=== PATIENT | female | born 2000 | race Caucasian/White ===

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

== ENCOUNTER 2023-12-26 13:47 | Emergency (ER) | payer BC ==
[2023-12-26] MEDS: Sodium Chloride 0.9% 1,000 ML IV ONE (14:58)
[2023-12-26] MEDS: Ketorolac 30 MG/ML SDV IVPUSH ONE (14:58)
[2023-12-26 15:10] LABS: BASOPHILS ABSOLUTE AUTO 0.05 K/uL (0.00-0.20); BASOPHILS PERCENT AUTO 0.7 % (0.0-1.0); EOSINOPHILS ABSOLUTE AUTO 0.05 K/uL (0.00-0.45); EOSINOPHILS PERCENT AUTO 0.7 % (0.0-6.0); HEMATOCRIT 44.1 % (37.0-47.0); HEMOGLOBIN 14.9 g/dL (12.0-16.0); IMMATURE GRAN ABSOLUTE AUTO 0.03 K/uL (0.00-0.05); IMMATURE GRAN PERCENT AUTO 0.4 % (0.0-0.4); LYMPHOCYTES ABSOLUTE AUTO 0.87 K/uL (1.00-4.80); LYMPHOCYTES PERCENT AUTO 12.3 % (24.0-44.0); MEAN CORPUSCULAR HEMOGLOBIN 30.6 pg (28.0-32.0); MEAN CORPUSCULAR HGB CONC 33.8 g/dL (32.0-36.0); MEAN CORPUSCULAR VOLUME 90.6 fL (83.0-99.0); MEAN PLATELET VOLUME 9.8 fL (9.4-12.3); MONOCYTES PERCENT AUTO 9.9 % (0.0-8.0); NEUTROPHILS ABSOLUTE AUTO 5.36 K/uL (1.80-7.70); PLATELET COUNT,PLT 293 K/uL (150-400); RED BLOOD CELL COUNT 4.87 M/uL (4.10-5.30); WHITE BLOOD CELL COUNT,WBC 7.06 K/uL (3.9-11.3)
[2023-12-26 15:48] LABS: CORONAVIRUS COVID-19 NAA POSITIVE (NEGATIVE); INFLUENZA A NAA NEGATIVE (NEGATIVE); INFLUENZA B NAA NEGATIVE (NEGATIVE); RESPIRATORY SYNCYTIAL VIR NAA NEGATIVE (NEGATIVE)
[2023-12-26 16:11] LABS: A/G RATIO 1.3 (0.9-1.6); BILIRUBIN TOTAL 0.4 mg/dL (0.2-1.0); CALCIUM 8.9 mg/dL (8.5-10.1); CARBON DIOXIDE,CO2 26.4 mmol/L (21.0-32.0); CREATININE 0.8 mg/dL (0.6-1.0); EST CRCL DRUG DOSING (CG) 104.14 mL/min; POTASSIUM,K 4.2 mmol/L (3.5-5.1); PROTEIN TOTAL,TP 7.1 g/dL (6.4-8.2)
[2023-12-26 16:17] LABS: APPEARANCE,URINE CLEAR; BILIRUBIN,URINE NEGATIVE (NEGATIVE); COLOR,URINE YELLOW; GLUCOSE,URINE NEGATIVE (NEGATIVE); KETONES,URINE NEGATIVE (NEGATIVE); LEUKOCYTE ESTERASE,URINE TRACE (NEGATIVE); NITRITE,URINE NEGATIVE (NEGATIVE); OCCULT BLOOD,URINE NEGATIVE (NEGATIVE); PROTEIN,URINE NEGATIVE (NEGATIVE); UROBILINOGEN,URINE 0.2 EU/dL (<2.0)
[2023-12-26 16:19] LABS: LACTIC ACID 1.5 mmol/L (0.4-2.0)
[2023-12-26 16:31] LABS: EPITHELIAL CELLS,URINE MANY (NONE-FEW); RBC,URINE 0-1 (0-2/HPF)
[2023-12-26 16:32] LABS: BACTERIA,URINE 1+ (NEGATIVE); MUCUS,URINE MODERATE (NONE-MOD)
[2023-12-26] MEDS: Iopamidol 755 MG/ML 500 ML Multipack Bottle IVPUSH STA (17:34)
== END 2023-12-26 18:47 | disposition home or self-care (01) ==
LOC: MW.ED 13:47
DX: U07.1 COVID-19 (principal); Z79.899 Other long term (current) drug therapy; Z75.8 Other problems related to medical facilities and other health care; R07.89 Other chest pain; R06.82 Tachypnea, not elsewhere classified; R00.0 Tachycardia, unspecified
CPT/HCPCS: 0241U; 36415; 71045; 71260; 80053; 81001; 81025; 83605; 84484; 85025; 85379; 87040; 87086; 96361; 96374; 99285; J1885; J7030; Q9967